=== PATIENT | female | born 2000 | race Caucasian/White ===

== ENCOUNTER 2021-07-03 11:39 | Emergency (ER) | payer OTHER ==
[~2021-07-03] VITALS: Ht 167.6 cm; Wt 72.7 kg
--- NOTE | 2021-07-03 12:13 | NUR ---
COVID SWAB COLLECTED, PT PROVIDED URINE SAMPLE. BOTH COLLECTED AND TAKEN TO LAB. SEISMIC PLOTTER AT BEDSIDE.
[2021-07-03 12:23] LABS: MICROSCOPIC NOT IND
[2021-07-03 12:27] LABS: BASOPHILS % (AUTO) 0 % (0-1); EOSINOPHILS % (AUTO) 1 % (1-7); LYMPHOCYTES % (AUTO) 47 % (22-44); MEAN CORPUSCULAR HEMOGLOBIN 29.9 pg (27.0-34.8); MEAN CORPUSCULAR HGB CONC 35.4 g/dL (32.4-35.8); MEAN PLATELET VOLUME 7.4 fL (7.4-10.4); MONOCYTES % (AUTO) 4 % (2-9); NEUTROPHILS % (AUTO) 48 % (42-75); PLATELET COUNT 178 x10^3/uL (130-400); RED CELL DISTRIBUTION WIDTH 11.8 % (9.6-15.2)
[2021-07-03 12:35] LABS: ALANINE AMINOTRANSFERASE 35 U/L (12-78); ANION GAP 7 mmol/L (5-15); CALCIUM 9.1 mg/dL (8.5-10.1); CHLORIDE 108 mmol/L (98-107); CREATININE 0.95 mg/dL (0.55-1.02)
[2021-07-03 12:40] LABS: ALKALINE PHOSPHATASE 105 U/L (45-117); BILIRUBIN,TOTAL 0.2 mg/dL (0.2-1.0); TOTAL PROTEIN 7.5 g/dL (6.4-8.2)
--- NOTE | 2021-07-03 13:14 | NUR ---
N/O FOR CTA. PIV PLACED. PT UPDATED ON POC.
--- NOTE | 2021-07-03 13:52 | NUR ---
PT AT CT
[2021-07-03] MEDS ORDERED: OMNIPAQUE 350 MG/ML, 75ML BOTTLE ONE (13:58)
[2021-07-03 14:33] VITALS: BP 110/72
--- NOTE | 2021-07-03 14:33 | NUR ---
ERMD AT BEDSIDE TO UPDATE PT ON POC.
--- NOTE | 2021-07-03 14:52 | NUR ---
report received from Jennifer ANDERSON, assuming care of pt at this time
--- NOTE | 2021-07-03 15:17 | NUR ---
pt eductaed on dc instructions, prescription, and return criteria, verbalized understanding, ambulatory to dc desk with steady gait.
== END 2021-07-03 15:19 | disposition home or self-care (01) ==
LOC: ED 15:06
DX: J18.0 Bronchopneumonia, unspecified organism (principal); Z20.822 Contact with and (suspected) exposure to COVID-19; R21 Rash and other nonspecific skin eruption
CPT/HCPCS: 36415; 71045; 71275; 80053; 81003; 84703; 85025; 99285; Q9967; U0003; U0005